=== PATIENT | male | born 1965 | race Caucasian/White ===

== ENCOUNTER 2023-04-17 11:30 | Day surgery (SDC) | payer OTHER ==
[~2023-04-17] VITALS: Ht 175.3 cm; Wt 89.4 kg
[2023-04-17] VITALS (11 sets, daily range): BP systolic 110–126; BP diastolic 75–89; PULSE 51–66; TEMP 97.1–97.9
[~2023-04-17 11:30] MED LIST: ASPIRIN E.C. 8181 MG PO; CRESTOR20 MG PO; CRESTOR40 MG PO; ZOLOFT 100MG100 MG PO
[2023-04-17] MEDS ORDERED: ceFAZolin 2 G in Water For Injection,Sterile 20 ML IV SCH (12:00)
[2023-04-17] MEDS ORDERED: 1/2 NS 1,000 ML IV SCH (12:00)
[2023-04-17 12:28] LABS: HEMOGLOBIN 14.2 g/dl (13.5-18.0); MEAN CELL VOLUME 94 fl (80.0-100.0); MEAN CORPUSCULAR HEMOGLOBIN 33 pg (27-31); MEAN CORPUSCULAR HGB CONC 35 g/dl (33.0-37.0); MEAN PLATELET VOLUME 10.4 fl (7.4-10.4); PLATELET COUNT 183 K/mm3 (130-400); RED BLOOD COUNT 4.36 M/mm3 (4.20-5.60); REDCELL DISTRIBUTION WIDTH-CV 12.5 % (11.5-14.5)
[2023-04-17 12:35] LABS: INR 1.1 (0.8-3.0); PROTHROMBIN TIME 12.1 SECONDS (9.7-12.8)
[2023-04-17 12:52] LABS: CREATININE, serum 1.23 mg/dL (0.72-1.25); POTASSIUM 3.9 mmol/L (3.5-4.5)
[2023-04-17] MEDS ORDERED: MIRALAX PA17 GM/Dose PO (12:56)
[2023-04-17] MEDS ORDERED: PRIL40 PO (12:57)
[2023-04-17] MEDS ORDERED: COLACE 100100 MG/CAP PO (12:57)
[2023-04-17] MEDS ORDERED: CELEBREX 1100 MG/CAP PO (12:57)
[2023-04-17] MEDS ORDERED: TYLENOL 325MG325 MG PO (13:01)
--- NOTE | 2023-04-17 14:15 | NUR ---
Please see merge documentation for record of interventions, vitals and medications administered during micra placement and loop removal.
[2023-04-17] MEDS ORDERED: Heparin 1,000 UNITS/ML 10 ML Multi-Dose VIAL IV SCH (14:19)
[2023-04-17] MEDS ORDERED: NS 100 ML IV.SOLN. IR SCH (14:21)
[2023-04-17] MEDS ORDERED: Midazolam 2 MG/2 ML VIAL IV SCH (14:30)
[2023-04-17] MEDS ORDERED: fentaNYL 50 MCG/ML 2 ML VIAL IV SCH (14:33)
[2023-04-17] MEDS ORDERED: Acetaminophen 500 MG TAB PO SCH (15:47)
--- NOTE | 2023-04-17 15:51 | NUR ---
Patient arrived to the unit at approx 1500 from labor relations representative post pacemaker placement. Report was done bedside with TREVOR Guthrie. Patient had a "micro", leadless pacemaker placed at labor relations representative by Dr. Hall. Patient brought back to the ICU for monitoring; patient arrived in stable condition and vital signs were within normal limits. Patient has no meds or fluids running and a peripheral INT; no other lines or tubes are in place at this time. Patient's access was right femoral; site is soft with no hematoma and gauze dressing is clean, dry, and intact.
--- NOTE | 2023-04-17 19:00 | NUR ---
REPORT RECEIVED FROM TREVOR KC. PATIENT RESTING IN BED WATCHING TV AT THIS TIME. NO SIGNS OF ACUTE DISTRESS
[2023-04-17] MEDS ORDERED: Rosuvastatin 20 MG **** subs to Atorvastatin 40 MG PO SCH (21:00)
[2023-04-17] MEDS ORDERED: Atorvastatin 40 MG TAB PO SCH (21:00)
[2023-04-17] MEDS ORDERED: Cephalexin 500 MG CAP PO SCH (21:00)
[2023-04-18] VITALS: BP 91/63; PULSE 52; TEMP 97.7
[2023-04-18 04:00] VITALS: BP 115/95; PULSE 53; TEMP 97.7
[2023-04-18 08:00] VITALS: BP 123/85; PULSE 60; TEMP 97.7
[2023-04-18] MEDS ORDERED: CEPHALEXIN500 M1 PO (08:09)
[2023-04-18] MEDS ORDERED: Sertraline 100 MG TAB PO SCH (09:00)
[2023-04-18] MEDS ORDERED: Celecoxib 100 MG CAP PO SCH (09:00)
--- NOTE | 2023-04-18 09:33 | NUR ---
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 SW met with pt to discuss discharge planning. Pt reports he lives alone in [place]. He sees a PCP at [facility] and obtains medications from there with no cost. He has a contact, Peg listed [phone]. He reports his mother is his DPOA-HC, Ayleen Morton [phone]. He does not have a copy with him, but his mother has one or he has it at home. Pt reports he is independent with ADLS and uses a CPAP for DME. Pt reports he intends to return home today and his friend, Peg will be his transport around 12pm-wendy. He says if she cannot come, his SRU place at [facility] will be able to transport him. Discharge Plan: Home after X-RAY
[2023-04-18 12:00] VITALS: BP 107/76; PULSE 54
--- NOTE | 2023-04-18 12:30 | NUR ---
REVIEWED DISCHARGE INSTRUCTIONS WITH THE PATIENT. REVIEWED DISCHARGE MEDICATIONS AND LIMITATIONS. PT WAS RECEPTIVE TO ALL INSTRUCTIONS. ANSWERED ALL QUESTIONS. REMOVED IV. PATIENT HAD ALL BELONGINGS AND TAKEN OUT IN A WHEEL CHAIR TO A GIRLFRIEND. PT STABLE AND IN NO DISTRESS.
--- NOTE | 2023-04-18 15:05 | NUR ---
PT RESTING COMFOTABLY IN BED. ALERT AND ORIENTED, NO PAIN COMPLAINTS. IV LOCKED. USING A URINAL. RIGHT GROIN SITE C/D/I AND NO HEMATOMA. RIGHT DP PULSE PALPALBE. CHEST DRESSING C/D/I. NO OXYGEN REQUIREMENT. VITAL SIGNS STABLE.
== END 2023-04-18 12:45 | disposition home or self-care (01) ==
LOC: ICU 11:30 → COL.CAR 11:30 → ICU 15:00 → COL.CAR 04-18 12:45
PROVIDERS: Internal Medicine Interventional Cardiology
DX: R00.1 Bradycardia, unspecified (principal); E78.5 Hyperlipidemia, unspecified; I25.10 Atherosclerotic heart disease of native coronary artery without angina pectoris; Z87.891 Personal history of nicotine dependence; Z79.899 Other long term (current) drug therapy
CPT/HCPCS: OP; C1760; C1769; C1786; C1894; J0690; J1644; J2250; J3010